=== PATIENT | male | born 1985 | race Caucasian/White ===

== ENCOUNTER → 2018-12-08 | Outpatient (CLI) | payer OTHER ==
--- NOTE | 2018-12-09 15:11 | MR ---
EXAMINATION TYPE: MR ankle RT wo con DATE OF EXAM: 12/08/2018 COMPARISON: 05/02/2015 HISTORY: R ankle injury/pain TECHNIQUE: Multiplanar, multisequence images of the right ankle were acquired per department protocol without in travenous contrast. FINDINGS: The distal Achilles tendon remains thickened however this is markedly T1 and T2 hypointense , appearing fibrotic. This is unchanged from the prior of 04/24/2015 where there was T2 hyperintensity and questioned abscess. Fragmented of the enthesophytes are seen of the Achilles tendon insertion. N o increased signal is seen within the insertion of the Achilles tendon. No further bone marrow edema that was present on the prior at the insertion. The previously seen overlying edema has resolved and no focal fluid collection is seen. Small plantar heel spur is also noted. There is redemonstration of a surgical screw fixating the medial malleolus creating blooming artifact and limiting surrounding visualization. Additional fixation hardware seen over the lateral mid to hi ndfoot creating limited evaluation at this location. The previously seen subluxation of the peroneal tendons at the level of the lateral malleolus suggest ing a superior peritoneal retinacular tear is not discretely visualized. There is some thickening of the peroneus brevis without discrete tear. There is suboptimal evaluation of the flexor tendons demon strate susceptibility artifact from the surgical hardware. No gross full-thickness tear is seen. Lisf ranc ligament appears intact and unremarkable. No bone marrow edema is seen at this time. Talar dome appears intact and unremarkable. Hindfoot remains aligned. Sinus tarsus is unremarkable. The skin dem onstrates fibrosis and focal defect medially over the distal Achilles tendon. Evaluation of the tendo ns of the ankle are limited given susceptibility artifact from the surgical hardware however they brendan ear grossly intact. IMPRESSION: 1. 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 Skin defect is seen overlying this fibrosis at the medial skin surface. No abnormal si gnal to suggest Achilles tendinosis or recurrent abscess. No tear is seen. Enthesiopathy is noted at its insertion. 2. Thickening of the peroneus brevis tendon without discontinuity suggesting mild tendinosis. 3. Resolution of the previously seen calcaneal bone marrow edema. Small infracalcaneal osteophyte is again noted. 4. Post surgical changes of the right ankle with no evidence of ankle malalignment.
== END | disposition home or self-care (01) ==
LOC: RADMRIMAIN 09:49
PROVIDERS: ATTEND Podiatrist Foot & Ankle Surgery
DX: S86.011D Strain of right Achilles tendon, subsequent encounter (principal); M25.771 Osteophyte, right ankle; M77.51 Other enthesopathy of right foot and ankle; Z98.890 Other specified postprocedural states